=== PATIENT | male | born 1985 | race Hispanic/Latino ===

== ENCOUNTER 2019-11-30 17:04 | Emergency (ER) | payer OTHER ==
[~2019-11-30] VITALS: Ht 170.2 cm; Wt 98.9 kg
--- NOTE | 2019-11-30 17:50 | NUR ---
pt refused CT scan, states he is afraid of the cose. pt given risk facters and verbalized understanding. Dr Montalvo aware.
[2019-11-30 18:34] VITALS: BP 162/92
[2019-11-30] MEDS ORDERED: NAPROSYN500 MG PO (18:35)
--- NOTE | 2019-11-30 18:40 | Emergency Department Note ---
History of Present Illnes History of Present Illness Chief Complaint: Abdominal Complaints History of Present Illness This is a 33 year old male Chief Complaint Comment left lower abd pain since friday, denies N/V/D or pain, states pressure after eating. . Historian: Patient Arrival Mode: Car Onset (how long ago): day(s) (3) Location: [facility] Quality: SHARP Radiation: Denies non-radiation, Denies back, Denies neck, Denies extremity, Denies abdomen, Denies periumbilical, Denies flank, Denies proximal, Denies distal, Denies other Severity: moderate Onset quality: sudden Duration (how long): day(s) (2) Timing of current episode: constant Progression: waxing and waning Chronicity: new Context: Denies recent illness, Denies recent surgery, Denies recent immobilization, Denies recent travel, Denies trauma/injury, Denies new medications, Denies hx of DVT/PE, Denies non-compliance w/ medications, Denies other Relieving factors: none Exacerbating factors: none Associated symptoms: Reports denies other symptoms Past Medical/Family History Physician Review I have reviewed the patient's past medical and family history. Any updates have been documented here. Past Medical History Recent Fever: No Clinical Suspicion of Infectio: No New/Unexplained Change in Ment: No Past Medical History: None Past Surgical History: None Social History Smoking Cessation: Never Smoker Counseling Performed: No Alcohol Use: Occasional Any Illegal Drug Use: No TB Exposure/Symptoms: No Physically hurt or threatened: No Family History Family history of heart diseas: No Other Last Tetanus: utd Any Pre-Existing Lines (PICC,: No Is patient up to date on immun: No Last Flu: 2019 Last Pneumovax: unk Review of Systems Review of Systems Constitutional: Reports no symptoms EENTM: Reports no symptoms Cardiovascular: Reports no symptoms Respiratory: Reports no symptoms Gastrointestinal: Reports abdominal pain Genitourinary: Reports no symptoms Musculoskeletal: Reports no symptoms Integumentary: Reports no symptoms Neurological: Reports no symptoms Psychological: Reports no symptoms Endocrine: Reports no symptoms Hematological/Lymphatic: Reports no symptoms Review of other systems All other systems reviewed and negative. Physical Exam Related Data Triage Vital Signs Vital Signs Date Time Temp Pulse Resp B/P (MAP) Pulse Ox O2 Delivery O2 Flow Rate FiO2 11/30/19 17:33 98.1 81 18 135/81 98 Physical Exam CONSTITUTIONAL Constitutional: Reports well-developed, Reports well-nourished HENT HENT: Reports normocephalic, Reports atraumatic, Reports oropharynx clear/moist, Reports nose normal HENT L/R: Reports left ext ear normal, Reports right ext ear normal EYES Eyes: Reports PERRL, Reports conjunctivae normal NECK Neck: Reports ROM normal PULMONARY Pulmonary: Reports effort normal, Reports breath sounds normal CARDIOVASCULAR Cardiovascular: Reports regular rhythm, Reports heart sounds normal, Reports capillary refill normal, Reports normal rate GASTROINTESTINAL Abdominal: Reports soft, Reports bowel sounds normal, Reports tender (LLQ) GENITOURINARY Genitourinary: Reports exam deferred SKIN Skin: Reports warm, Reports dry MUSCULOSKELETAL Musculoskeletal: Reports ROM normal NEUROLOGICAL Neurological: Reports alert, Reports oriented x 3, Reports no gross motor or sensory deficits PSYCHOLOGICAL Psychological: Reports mood/affect normal, Reports judgement normal Results Laboratory Lab results reviewed: Yes Assessment & Plan Medical Decision Making MDM DIVERTICULITIS UROLETHIASIS Reassessment Reassessment time: 18:39 Reassessment BETTER Assessment & Plan Final Impression: (1) Abdominal pain, left lower quadrant Depart Disposition: HOME, SELF-CARE Last Vital Signs Date Time Temp Pulse Resp B/P (MAP) Pulse Ox O2 Delivery O2 Flow Rate FiO2 11/30/19 17:33 98.1 81 18 135/81 98 Home Meds Active Scripts Naproxen (NAPROSYN) 500 Mg Tablet, 500 MG PO BID for pain, #20 TAB Prov:LAXMI AMBROSIO MD 11/30/19 LAXMI AMBROSIO MD Nov 30, 2019 18:39
== END 2019-11-30 18:48 | disposition home or self-care (01) ==
LOC: FSED 17:04
DX: R10.32 Left lower quadrant pain (principal)
CPT/HCPCS: 80048; 83518; 85025; 99283